=== PATIENT | female | born 1955 | race Caucasian/White ===

== ENCOUNTER 2016-06-10 09:22 | Emergency (ER) | payer MEDICARE, MEDICAID ==
[~2016-06-10] VITALS: Ht 165.1 cm; Wt 104.3 kg
[~2016-06-10 09:22] MED LIST: ADVAIR 250/501 PUFFS INH; ALBUTEROL2.5 MG/3 M INH; AMBIEN10 MG PO; ARICEPT10 MG PO; BENZTROPINE MESY2 MG ORAL; CARDIZEM CD180 MG ORAL; CARTIA XT180 MG ORAL; COGENTIN2 MG PO; GEODON20 MG ORAL; GEODON40 MG ORAL; GEODON40 MG PO; IBUPROFEN400 MG ORAL; IBUPROFEN600 MG ORAL; KEFLEX500 MG ORAL; KEPPRA500 M2 PO; KEPPRA500 MG PO; KLONOPIN1 MG ORAL; KLONOPIN1 MG PO; LEVETIRACETAM500 MG PO; LOSARTAN POTASS50 MG ORAL; MAG-OXIDE400 MG PO; NORCO 10/3251 EA ORAL; NORCO 5-325 TA1 EACH ORAL; NORCO 7.5-3251 EACH ORAL; PRINIVIL20 MG ORAL; PROAIR HFA8.5 GM INH; PROZAC20 MG PO; QUETIAPINE FUM200 MG PO; QUETIAPINE FUMA25 MG ORAL; SEROQUEL100 MG ORAL; SEROQUEL25 MG ORAL; TOPIRAMATE100 MG ORAL; TOPIRAMATE100 MG PO; TRAZODONE HCL100 MG ORAL; TRILEPTAL150 MG PO; TRILEPTAL300 MG PO; VICODIN1 TAB PO; ZESTRIL10 MG PO
[2016-06-10 09:29] VITALS: BP 132/67
--- NOTE | 2016-06-10 09:48 | Emergency Room Report ---
History of Present Illness General Chief Complaint: Earache Source: Patient Present Illness HPI Patient presents with 3 days of worsening pain in L ear and behind ear. No fevers. No change in hearing. No fever or sore throat. Has been aggressively cleaning. No chest pain, NVD, vertigo, rashes, extremity pain, OWENS. Pain 9/10, constant and worsening, aching and burning. Some radiation to neck. Allergies: Coded Allergies: TRAMADOL (Verified Allergy, Severe, Anaphylaxis, 12/12/11) MORPHINE (Verified Allergy, Unknown, 02/26/13) swelling, Patient History Past Medical History: see triage record Past Surgical History: PTCA, manolo, hysterectomy, other - knee surgery Social History: Reports: alcohol use - former, drug use - former, smoking - former Social History Narrative disabled Last Menstrual Period: na Reviewed Nursing Documentation: PMH: Agreed, PSxH: Agreed Nursing Documentation-PMH Past Medical History: No History, Except For Hx Cardiac Problems: Yes - Coronary Angioplasty surgery 2004 Hx Hypertension: Yes Hx Pacemaker: No Hx Asthma: Yes Hx COPD: Yes Hx Diabetes: No Hx Cancer: No Hx Gastrointestinal Problems: Yes - Hepatits B and C; Hernia Hx Dialysis: No Hx Neurological Problems: Yes Hx Cerebrovascular Accident: Yes Hx Transient Ischemic Attacks: No Hx Dementia: Yes - early onset Hx Alzheimer's Disease: No Hx Parkinson's Disease: No Hx Meningitis: No Hx Encephalitis: No Hx Seizures: Yes Hx Epilepsy: Yes Hx Multiple Sclerosis: No Hx Cerebral Palsy: No Hx Amyotrophic Lat Sclerosis: No Hx Guillian-[place] Syndrome: No Hx Paralysis: No Hx Peripheral Neuropathy: No Hx Spinal Cord Injury: No Hx Head Trauma: No Hx Traumatic Brain Injury: No Hx Memory Loss: No Hx Concentration Difficulty: Yes - occasionally Hx Speech Problem: No - 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 Hx Tremors: No Hx Vertigo: No Hx Dizziness: No Hx Syncope: No Hx Headaches: No Hx Aphasia: No Hx Dysphasia: No Hx Numbness: No Hx Weakness: Yes - right arm weakness due to surgery Hx Fatigue: No Hx Neurologic Surgery: No Hx Brain Shunt: No Review of Systems All Other Systems: negative except mentioned in HPI Physical Exam Vital Signs Date Time Temp Pulse Resp B/P Pulse Ox O2 Delivery O2 Flow Rate FiO2 06/10/16 09:29 98.2 71 18 132/67 98 Room Air Sp02 EP Interpretation: reviewed, normal General Appearance: well appearing, no apparent distress, GCS 15, non-toxic Head: normocephalic, atraumatic Eyes: bilateral eye PERRL, bilateral eye normal inspection ENT: normal pharynx, moist mucus membranes, other - TMs normal, L canal with swell and tender pinna and slight tend mastoid Neck: full range of motion, supple, thyroid normal Respiratory: lungs clear, normal breath sounds Gastrointestinal: non tender, overweight Musculoskeletal: back normal, digits/nails normal, gait/station normal, normal range of motion, no calf tenderness Neurologic: alert, oriented x3, normal gait, grossly normal Psychiatric: mood/affect normal Skin: no rash Medical Decision Making Diagnostic Impression: Primary Impression: Otitis externa Qualified Codes: H60.502 - Unspecified acute noninfective otitis externa, left ear ER Course Patient presents with L ear pain. Exam excludes OM and is c/w OE. Needs antibiotics, analgesia. Start treatment in ED. Patient improved and stable for outpatient observation and treatment. Last Vital Signs Date Time Temp Pulse Resp B/P Pulse Ox O2 Delivery O2 Flow Rate FiO2 06/10/16 10:03 64 16 120/73 97 Room Air 06/10/16 09:29 98.2 Status: improved Disposition: HOME, SELF-CARE Condition: Improved Scripts Ciprofloxacin Hcl* (CIPROFLOXACIN HCL*) 500 Mg Tablet 500 MG ORAL Q12H, #14 TAB 0 Refills Prov: Matias Read M.D. 06/10/16 Hydrocodone Bit/Acetaminophen 5-325* (NORCO 5-325*) 1 Each Tablet 1 TAB ORAL Q6H Y for For Pain, #10 TAB 0 Refills Prov: Matias Read M.D. 06/10/16 Ciprofloxacin/Hydrocortisone (CIPRO HC OTIC SUSPENSION) 10 Ml Drops.susp 3 DROP OT Q6HR, #10 ML Prov: Matias Read M.D. 06/10/16 Matias Read M.D. Jun 10, 2016 09:48
[2016-06-10] MEDS ORDERED: CIPRO HC OTIC S10 M1 OT (09:51)
[2016-06-10] MEDS ORDERED: NORCO 5-325 TA1 EACH ORAL (09:51)
[2016-06-10] MEDS ORDERED: CIPROFLOXACIN500 M2 ORAL (09:51)
[2016-06-10] MEDS ORDERED: Norco 5mg/325mg tab ORAL ONE (10:00)
[2016-06-10] MEDS ORDERED: Ciprofloxacin 500mg tab ORAL ONE (10:00)
[2016-06-10 10:03] VITALS: BP 120/73
[2016-07-04] MEDS ORDERED: GEODON20 MG ORAL (13:35)
== END 2016-06-10 10:05 | disposition home or self-care (01) ==
LOC: EMR 09:55
DX: H60.92 Unspecified otitis externa, left ear (principal); I10 Essential (primary) hypertension; J45.909 Unspecified asthma, uncomplicated; J44.9 Chronic obstructive pulmonary disease, unspecified; Z86.73 Personal history of transient ischemic attack (TIA), and cerebral infarction without residual deficits; F03.90 Unspecified dementia, unspecified severity, without behavioral disturbance, psychotic disturbance, mood disturbance, and anxiety
CPT/HCPCS: 99284

== ENCOUNTER 2017-01-15 09:39 | Emergency (ER) | payer MEDICARE, MEDICAID ==
[~2017-01-15] VITALS: Ht 167.6 cm; Wt 131.5 kg
[~2017-01-15 09:39] MED LIST changes: +CIPRO HC OTIC S10 M1 OT; +CIPROFLOXACIN500 M2 ORAL
[2017-01-15] MEDS ORDERED: ACETAMINOPHEN500 M3 ORAL (10:04)
[2017-01-15] MEDS ORDERED: ROBAXIN-750750 MG PO (10:04)
[2017-01-15 10:05] VITALS: BP 100/66
[2017-01-15] MEDS ORDERED: Methocarbamol 750mg tab ORAL ONE (10:15)
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
[2017-01-15 10:45] VITALS: BP 100/66
[2017-01-16] MEDS ORDERED: QUETIAPINE FUM200 MG ORAL (13:33)
[2017-03-27] MEDS ORDERED: AMBIEN5 MG ORAL (13:33)
== END 2017-01-15 10:47 | disposition home or self-care (01) ==
LOC: EMR 10:11
DX: M54.9 Dorsalgia, unspecified (principal); V43.62XA Car passenger injured in collision with other type car in traffic accident, initial encounter; Y92.481 Parking lot as the place of occurrence of the external cause; Z88.6 Allergy status to analgesic agent; I10 Essential (primary) hypertension; J44.9 Chronic obstructive pulmonary disease, unspecified; Z86.73 Personal history of transient ischemic attack (TIA), and cerebral infarction without residual deficits; F03.90 Unspecified dementia, unspecified severity, without behavioral disturbance, psychotic disturbance, mood disturbance, and anxiety
CPT/HCPCS: 99284

== ENCOUNTER 2017-03-26 09:54 | Emergency (ER) | payer MEDICAID, MEDICARE ==
[~2017-03-26] VITALS: Ht 157.5 cm; Wt 90.7 kg
[~2017-03-26 09:54] MED LIST changes: +ACETAMINOPHEN500 M3 ORAL; +QUETIAPINE FUM200 MG ORAL; +ROBAXIN-750750 MG PO
[2017-03-26 09:59] VITALS: BP 122/65
[2017-03-26] MEDS ORDERED: UNOBMED (10:21)
[2017-03-26] MEDS ORDERED: Ketorolac 60mg Inj IM ONE (11:15)
[2017-03-26] MEDS ORDERED: ROBAXIN500 MG PO (11:16)
[2017-03-26 11:29] VITALS: BP 122/65
--- NOTE | 2017-03-26 15:34 | Diagnostic Imaging Report ---
Indication: Pain Technique: XRAY C Spine 2-3v Comparison: Correlation made to CT of the cervical spine 12/05/2013 Findings: There is no abnormal cervical curvature. There is straightening of the cervical lordosis. There is no acute fracture. There are multilevel degenerative changes of the cervical spine infested by loss of disc height, productive change and facet arthropathy. The lateral atlantodental intervals appear symmetric. No prevertebral soft tissue abnormality seen. The patient is noted to be edentate. Imaged lung apices are clear. Impression: Multilevel degenerative change. No acute fracture.
--- NOTE | 2017-03-26 18:27 | Diagnostic Imaging Report ---
Indication: Pain Technique: XRAY L Spine Ltd Comparison: None Findings: Limited evaluation due to patient body habitus and osteopenia. There is scoliosis of the spine.. There are multilevel degenerative changes. No fracture is appreciated. Bowel gas pattern is nonobstructive. Impression: Limited evaluation due to osteopenia and patient's large body habitus. Scoliosis with multilevel degenerative change. No gross fracture appreciated. More sensitive evaluation with CT can be obtained as clinically indicated.
[2017-03-27] MEDS ORDERED: AMBIEN5 MG ORAL (13:33)
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
[2017-06-02] MEDS ORDERED: LISINOPRIL2.5 MG ORAL (09:12)
[2017-06-02] MEDS ORDERED: LEXAPRO10 MG ORAL (09:12)
== END 2017-03-26 11:50 | disposition home or self-care (01) ==
LOC: EMR 10:45
DX: S13.9XXA Sprain of joints and ligaments of unspecified parts of neck, initial encounter (principal); S39.012A Strain of muscle, fascia and tendon of lower back, initial encounter; V43.62XA Car passenger injured in collision with other type car in traffic accident, initial encounter; Y92.410 Unspecified street and highway as the place of occurrence of the external cause; I10 Essential (primary) hypertension; J44.9 Chronic obstructive pulmonary disease, unspecified; Z86.73 Personal history of transient ischemic attack (TIA), and cerebral infarction without residual deficits; M41.9 Scoliosis, unspecified
CPT/HCPCS: 72020; 72040; 96372; 99283

== ENCOUNTER 2017-06-02 09:16 | Emergency (ER) | payer MEDICARE, MEDICAID ==
[~2017-06-02] VITALS: Ht 162.6 cm; Wt 90.7 kg
[~2017-06-02 09:16] MED LIST changes: +AMBIEN5 MG ORAL; +LEXAPRO10 MG ORAL; +LISINOPRIL2.5 MG ORAL; +ROBAXIN500 MG PO; +UNOBMED
[2017-06-02 09:18] VITALS: BP 145/88
--- NOTE | 2017-06-02 09:33 | Emergency Room Report ---
History of Present Illness General Chief Complaint: Multiple Trauma/Fall Source: Patient, EMS Present Illness HPI Patient is a 61-year-old female who presented after increased pain to her head and neck. Patient reports having fallen while attending adult daycare. The patient reports having prior history of neck pain. She denies any loss of consciousness. She states that she tripped on a step. She states that she struck the back of her head. Allergies: Coded Allergies: TRAMADOL (Verified Allergy, Severe, Anaphylaxis, 12/12/11) MORPHINE (Verified Allergy, Unknown, 02/26/13) swelling, Patient History Reviewed Nursing Documentation: PMH: Agreed, PSxH: Agreed Nursing Documentation-PMH Past Medical History: No History, Except For Hx Cardiac Problems: Yes - Coronary Angioplasty surgery 2004 Hx Hypertension: Yes Hx Pacemaker: No Hx Asthma: Yes Hx COPD: Yes Hx Diabetes: Yes - Bipolar; Schizophrenia Hx Cancer: No Hx Gastrointestinal Problems: Yes - Hepatits B and C; Hernia Hx Dialysis: No History Of Psychiatric Problem: Yes Hx Neurological Problems: Yes Hx Cerebrovascular Accident: Yes Hx Transient Ischemic Attacks: No Hx Dementia: Yes - early onset Hx Alzheimer's Disease: No Hx Parkinson's Disease: No Hx Meningitis: No Hx Encephalitis: No Hx Seizures: Yes Hx Epilepsy: Yes Hx Multiple Sclerosis: No Hx Cerebral Palsy: No Hx Amyotrophic Lat Sclerosis: No Hx Guillian-[place] Syndrome: No Hx Paralysis: No Hx Peripheral Neuropathy: No Hx Spinal Cord Injury: No Hx Head Trauma: No Hx Traumatic Brain Injury: No Hx Memory Loss: No Hx Concentration Difficulty: Yes - occasionally Hx Speech Problem: No - 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 Hx Tremors: No Hx Vertigo: No Hx Dizziness: No Hx Syncope: No Hx Headaches: No Hx Aphasia: No Hx Dysphasia: No Hx Numbness: No Hx Weakness: Yes - right arm weakness due to surgery Hx Fatigue: No Hx Neurologic Surgery: No Hx Brain Shunt: No Review of Systems All Other Systems: negative except mentioned in HPI Physical Exam Vital Signs Date Time Temp Pulse Resp B/P (MAP) Pulse Ox O2 Delivery O2 Flow Rate FiO2 06/02/17 09:08 98.9 82 20 145/88 99 Room Air 99.0 Sp02 EP Interpretation: reviewed, normal General Appearance: normal inspection, alert, no apparent distress, GCS 15 Head: normocephalic, atraumatic Eyes: normal eye exam, PERRL, EOMI, lids + conjunctiva normal, no hyphema, no racoon eyes ENT: normal ENT inspection, TMs + canals normal, oropharynx normal, no guaman signs Neck: trach midline, no bony tend, full range of motion without pain Respiratory: effort normal, no retractions, clear to auscultation, chest symmetrical, palpation of chest normal, speaking in full sentences Cardiovascular: regular rate, rhythm, no JVD Cardiovascular #2: 2+ radial (R), 2+ radial (L), 2+ dorsalis pedis (R), 2+ dorsalis pedis (L) Gastrointestinal: normal inspection, non-tender, non-distended, no rebound/ guarding, normal bowel sounds Genitourinary: normal inspection Musculoskeletal: normal ROM, non-tender, back normal Skin: no rash, no lacerations, normal palpation Lymphatic: normal inspection Neurologic: normal inspection, CN II-XII intact, oriented x3, sensory intact, motor strength/tone normal, normal speech Psychiatric: normal inspection, memory normal, mood normal, no suicidal/ homicidal ideation Medical Decision Making Diagnostic Impression: Primary Impression: Contusion of head Additional Impression: Neck strain ER Course Patient presented after a fall. Differential diagnosis included was not limited to neck fracture, CVA, close head injury, syncopal episode, basilar ischemia. CT head read by radiology showed no evidence of acute hemorrhage or fracture. A CT of cervical spine showed multilevel degenerative changes without evident fracture. The patient is advised to follow up with primary care doctor in 1-2 days. Patient is advised to return if any worsening condition or if any changes in status that are concerning. This report is dictated with [employer] trader software which may occasionally lead to discrepancies related to use of this software. Last Vital Signs Date Time Temp Pulse Resp B/P (MAP) Pulse Ox O2 Delivery O2 Flow Rate FiO2 06/02/17 09:08 98.9 82 20 145/88 99 Room Air 99.0 Status: improved Disposition: HOME, SELF-CARE Condition: Stable Referrals: NOT CHOSEN IPA/,REFERRING (PCP) Fran Rousseau Jun 02, 2017 09:33
--- NOTE | 2017-06-02 10:42 | Diagnostic Imaging Report ---
Indications: Increased pain to head and neck, status post fall Technique: Spiral acquisitions obtained through the brain. Angled axial and coronal 5 x 5 mm slices were reconstructed. Total dose length product 1403.5 mGycm. CTDI vol(s) 70.38 mGy. Dose reduction achieved using automated exposure control Comparison: 12/05/2013 Findings: There is some image degradation due to motion artifact. No acute intracranial hemorrhage or edema. No mass effect nor midline shift. There is mild age-related enlargement of the ventricles and extra-axial CSF spaces. There is bilateral periventricular deep white matter chronic ischemic change. The calvarium is grossly intact. There is evidence of prior bilateral cataract surgery. The visualized sinuses are unremarkable. Impression: Somewhat limited exam due to motion artifact Negative for acute intracranial bleed or mass effect Chronic and age-related changes, as described The CT scanner at [facility] is accredited by the [employer] and the scans are performed using protocols designed to limit radiation exposure to as low as reasonably achievable to attain images of sufficient resolution adequate for diagnostic evaluation.
[2017-06-02 10:57] VITALS: BP 148/87
--- NOTE | 2017-06-02 11:00 | Diagnostic Imaging Report ---
Indication: Head and neck pain after falling Technique: Spiral acquisitions obtained through the cervical spine. No IV contrast utilized. Multiplanar reconstructions were generated. Total dose length product 464 mGycm. CTDIvol(s) 23 mGy. Dose reduction achieved using automated exposure control. Comparison: 12/05/2013 Findings: There is image degradation due to motion artifact. This is particularly noticeable in the mid cervical spine There is also image noise related to patient body habitus. No definite acute fractures. No dislocations. No prevertebral soft tissue swelling. There is degenerative narrowing of the anterior atlantoaxial joint. At C3-4, there is degenerative disc narrowing. There is moderate bilateral neural foraminal stenosis. No significant disc bulge or protrusion or spinal stenosis. At C4-5, there is degenerative disc narrowing. There is bilateral moderate to severe neural foraminal stenosis. No significant disc bulge or protrusion or spinal stenosis. At C5-6, there is degenerative disc narrowing. Posterior osteophytes result in borderline narrowing of the spinal canal and may result in impingement on the left lateral recess. There is severe left and moderate to severe right neural foraminal stenosis At C6-7, there is degenerative disc narrowing. There is mild right neural foraminal stenosis. No significant disc bulge or protrusion or spinal stenosis. The included extra soft tissues are remarkable for the presence of bilateral maxillary sinus disease. Esophagus is mildly dilated When compared to the prior study, findings are unchanged Impression: Limited exam, as described, due to motion artifact and body habitus No definite acute bony trauma Degenerative changes, as described The CT scanner at [facility] is accredited by the [employer] and the scans are performed using protocols designed to limit radiation exposure to as low as reasonably achievable to attain images of sufficient resolution adequate for diagnostic evaluation.
[2017-06-02 12:00] VITALS: BP 140/85
[2017-06-02 13:05] VITALS: BP 105/51
[2017-06-02 13:14] VITALS: BP 105/51
[2017-06-19] MEDS ORDERED: ZYPREXA10 MG ORAL (14:44)
== END 2017-06-02 13:16 | disposition home or self-care (01) ==
LOC: EDBD 09:16 → EMR 09:29
DX: S16.1XXA Strain of muscle, fascia and tendon at neck level, initial encounter (principal); S00.93XA Contusion of unspecified part of head, initial encounter; G40.909 Epilepsy, unspecified, not intractable, without status epilepticus; Z86.73 Personal history of transient ischemic attack (TIA), and cerebral infarction without residual deficits; F03.90 Unspecified dementia, unspecified severity, without behavioral disturbance, psychotic disturbance, mood disturbance, and anxiety; B19.20 Unspecified viral hepatitis C without hepatic coma; B19.10 Unspecified viral hepatitis B without hepatic coma; F31.9 Bipolar disorder, unspecified; F20.9 Schizophrenia, unspecified; I10 Essential (primary) hypertension; J44.9 Chronic obstructive pulmonary disease, unspecified; Z98.61 Coronary angioplasty status; Z88.6 Allergy status to analgesic agent; W18.30XA Fall on same level, unspecified, initial encounter; Y92.099 Unspecified place in other non-institutional residence as the place of occurrence of the external cause
CPT/HCPCS: 70450; 72125; 99284

== ENCOUNTER 2017-09-15 09:21 | Emergency (ER) | payer MEDICARE, MEDICAID ==
[~2017-09-15] VITALS: Ht 167.6 cm; Wt 112.0 kg
[~2017-09-15 09:21] MED LIST changes: +COLACE100 MG ORAL; +ZYPREXA10 MG ORAL
[2017-09-15 09:29] VITALS: BP 130/58
[2017-09-15] MEDS ORDERED: CLARITIN-D 121 EAC1 ORAL (09:39)
[2017-09-15] MEDS ORDERED: Acetaminophen 500mg (ES) tab ORAL ONE (09:45)
--- NOTE | 2017-09-15 09:48 | Emergency Room Report ---
History of Present Illness General Chief Complaint: Earache Source: Patient, Medical Record Present Illness HPI Patient is a 61-year-old female who presented after increased bilateral earache. Patient reports having increased oral fullness as well as a increased hearing loss. This of been present for several weeks. She reports having sharp pain to both ears. She denies any fever or recent trauma. She has prior history of COPD. Patient denies current smoking. Patient denies any ringing in her ears. She denies any chest discomfort. Allergies: Coded Allergies: TRAMADOL (Verified Allergy, Severe, Anaphylaxis, 12/12/11) MORPHINE (Verified Allergy, Unknown, 02/26/13) swelling, Patient History Past Medical History: see triage record Reviewed Nursing Documentation: PMH: Agreed; PSxH: Agreed Nursing Documentation-PMH Past Medical History: No History, Except For Hx Cardiac Problems: Yes - Coronary Angioplasty surgery 2004 Hx Hypertension: Yes Hx Pacemaker: No Hx Asthma: Yes Hx COPD: Yes Hx Diabetes: Yes - Bipolar; Schizophrenia Hx Cancer: No Hx Gastrointestinal Problems: Yes - Hepatits B and C; Hernia Hx Dialysis: No Hx Neurological Problems: Yes Hx Cerebrovascular Accident: Yes Hx Transient Ischemic Attacks: No Hx Dementia: Yes - early onset Hx Alzheimer's Disease: No Hx Parkinson's Disease: No Hx Meningitis: No Hx Encephalitis: No Hx Seizures: Yes Hx Epilepsy: Yes Hx Multiple Sclerosis: No Hx Cerebral Palsy: No Hx Amyotrophic Lat Sclerosis: No Hx Guillian-Oakdale Syndrome: No Hx Paralysis: No Hx Peripheral Neuropathy: No Hx Spinal Cord Injury: No Hx Head Trauma: No Hx Traumatic Brain Injury: No Hx Memory Loss: No Hx Concentration Difficulty: Yes - occasionally Hx Speech Problem: No - 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 Hx Tremors: No Hx Vertigo: No Hx Dizziness: No Hx Syncope: No Hx Headaches: No Hx Aphasia: No Hx Dysphasia: No Hx Numbness: No Hx Weakness: Yes - right arm weakness due to surgery Hx Fatigue: No Hx Neurologic Surgery: No Hx Brain Shunt: No Review of Systems All Other Systems: negative except mentioned in HPI Physical Exam Vital Signs Date Time Temp Pulse Resp B/P (MAP) Pulse Ox O2 Delivery O2 Flow Rate FiO2 09/15/17 09:25 97.9 75 18 130/58 94 Room Air 97.9 General Appearance: well appearing, no apparent distress, alert, GCS 15, obese , Chronically Ill Head: normocephalic, atraumatic ENT: hearing grossly normal, normal voice, other - bilateral tms retracted Neck: full range of motion, supple Respiratory: lungs clear, no respiratory distress, speaking full sentences Cardiovascular #1: edema - trace edema, chronic per patient Gastrointestinal: normal inspection Musculoskeletal: normal inspection, no calf tenderness Neurologic: alert, oriented x3, responsive, data processing mechanic III-XII nml as tested, normal gait Psychiatric: normal inspection, judgement/insight normal, mood/affect normal Skin: no rash Medical Decision Making Diagnostic Impression: Primary Impression: Earache symptoms in both ears ER Course Patient presented for ear pain. Differential diagnosis included was not limited to otitis media, malignant otitis externa, foreign body, cellulitis, mastoiditis, carotid dissection, myocardial infarction among others. Patient has a benign exam and does not appear to require any further imaging or laboratory testing at this time. Patient does not appear to have any acute cardiac issue at this time. The patient's earache appears. Related to TM retraction. Patient is given prescription for Claritin-D.The patient is advised to follow up with primary care doctor in 1-2 days. Patient is advised to return if any worsening condition or if any changes in status that are concerning. This report is dictated with [employer] survey supervisor software which may occasionally lead to discrepancies related to use of this software. Last Vital Signs Date Time Temp Pulse Resp B/P (MAP) Pulse Ox O2 Delivery O2 Flow Rate FiO2 09/15/17 09:43 97.9 09/15/17 09:29 18 130/58 94 Room Air 09/15/17 09:25 75 Status: improved Disposition: HOME, SELF-CARE Condition: Stable Scripts Loratadine/Pseudoephedrine (CLARITIN-D 12 HOUR TABLET) 1 Each Tab.er.12h 1 TAB ORAL EVERY 12 HOURS, #20 TAB Prov: Fran Rousseau MD 09/15/17 Patient Instructions: Earache Fran Rousseau MD Sep 15, 2017 09:48
--- NOTE | 2017-09-18 21:00 | Reflections ---
SUBJECTIVE: The patient is withdrawn, guarded, anxious, internally preoccupied, depressed, and very little self-disclosure. Denies any new complaints. MENTAL STATUS EVALUATION: Alert and oriented to self and situation. Mood is anxious. Affect is appropriate. Thought process is linear. Cognition is intact. Impulse control, insight, and judgment is partially impaired. DIAGNOSIS: Schizophrenia. PLAN: Continue with current management. The patient is in a brief supportive psychotherapy. Medications reviewed. Chart reviewed. Case discussed with staff. Otherwise, we will continue to monitor the case. Rolando Rock M.D. DR: DONATO JOB#: [id number] CC:
== END 2017-09-15 10:00 | disposition home or self-care (01) ==
LOC: EMR 09:53
DX: H92.03 Otalgia, bilateral (principal); I10 Essential (primary) hypertension; E11.9 Type 2 diabetes mellitus without complications; J44.9 Chronic obstructive pulmonary disease, unspecified; F31.9 Bipolar disorder, unspecified; F20.9 Schizophrenia, unspecified; Z86.73 Personal history of transient ischemic attack (TIA), and cerebral infarction without residual deficits
CPT/HCPCS: 99283